=== PATIENT | female | born 2000 | race Caucasian/White ===

== ENCOUNTER 2021-07-16 17:25 | Emergency (ER) | payer OTHER ==
[2021-07-16] MEDS ORDERED: Sodium Chloride 0.9% 10 ML Syringe FLUSH PRN (17:28)
--- NOTE | 2021-07-16 18:24 | EDM.PDOC ---
ED HPI GENERAL MEDICAL PROBLEM - General Stated Complaint: FAST PLUSE Time Seen by Provider: 07/16/21 17:30 Source of Information: Reports: Patient History Limitations: Reports: No Limitations - History of Present Illness INITIAL COMMENTS - FREE TEXT/NARRATIVE: Patient presented to the ED because of palpitations which started at 2 pm. She has chest pain which has resolved upon her arrival in the ED. there is dizziness but no syncopal episode. She was started on strattera 2 weeks ago and she noticed that her anxiety and panic attack has been more frequent, weight loss, her appetite has been less. There is N/V but no abdominal pain. Headache Pain Score (Numeric/FACES): 3 - Related Data Allergies Allergy/AdvReac Type Severity Reaction Status Date / Time No Known Allergies Allergy Verified 07/16/21 17:45 Home Meds: Home Meds PARoxetine [Paxil] 10 mg PO DAILY 07/16/21 [History] atoMOXetine [Strattera] 40 mg PO DAILY 07/16/21 [History] traZODone 100 mg PO BEDTIME 07/16/21 [History] ED ROS GENERAL - Review of Systems Review Of Systems: See Below Constitutional: Reports: No Symptoms HEENT: Reports: No Symptoms Respiratory: Reports: No Symptoms Cardiovascular: Reports: Lightheadedness, Palpitations Endocrine: Reports: No Symptoms GI/Abdominal: Reports: Nausea, Vomiting : Reports: No Symptoms Musculoskeletal: Reports: No Symptoms Skin: Reports: No Symptoms Neurological: Reports: No Symptoms Psychiatric: Reports: Anxiety ED EXAM, GENERAL - Physical Exam Exam: See Below Exam Limited By: No Limitations General Appearance: Alert, No Apparent Distress Eye Exam: Bilateral Eye: PERRL Ears: Normal External Exam, Normal Canal Nose: Normal Inspection, Normal Mucosa, No Blood Throat/Mouth: Normal Inspection, Normal Lips, Normal Teeth, Normal Gums Head: Atraumatic, Normocephalic Neck: Normal Inspection, Supple, Non-Tender, Full Range of Motion Respiratory/Chest: No Respiratory Distress, Lungs Clear, Normal Breath Sounds, No Accessory Muscle Use, Chest Non-Tender Cardiovascular: Normal Peripheral Pulses, No Edema, No Gallop, No JVD, No Murmur, Tachycardia GI/Abdominal: Normal Bowel Sounds, Soft, Non-Tender, No Organomegaly Back Exam: Normal Inspection, Full Range of Motion Extremities: Normal Inspection, Normal Range of Motion, Non-Tender, No Pedal Edema, Normal Capillary Refill Neurological: Alert, Oriented, CN II-XII Intact, Normal Cognition, Normal Gait, Normal Reflexes, No Motor/Sensory Deficits Psychiatric: Anxious #1 Interpretation EKG Date: 07/16/21 Time: 17:58 Rhythm: NSR Rate (Beats/Min): 86 [place]: Normal P-Wave: Present QRS: Normal ST-T: Normal QT: Normal Comparison: NA - No Prior EKG EKG Interpretation Comments: NSR LAE Course - Vital Signs Text/Narrative:: Lab/EKG result was reviewed and discussed with patient and her parents Last Recorded V/S: Last Vital Signs Temp 36.7 C 07/16/21 17:30 Pulse 111 H 07/16/21 17:30 Resp 20 07/16/21 17:30 BP 136/107 H 07/16/21 17:30 Pulse Ox 100 07/16/21 17:30 - Orders/Labs/Meds Orders: Active Orders 24 hr Category Date Time Status Saline Lock Insert [OM.PC] Routine Oth 07/16/21 17:28 Ordered EKG 12 Lead [EK] Routine Ther 07/16/21 17:28 Ordered Labs: Laboratory Tests 07/16/21 07/16/21 07/16/21 Range/Units 17:45 17:45 17:45 WBC 8.9 (3.0-10.3) x10-3/uL RBC 5.37 H (3.60-5.20) x10(6)uL Hgb 15.2 (11.4-15.5) g/dL Hct 45.9 (34.2-48.2) % MCV 85.5 (76.7-100.5) fL MCH 28.2 (23.9-33.9) pg MCHC 33.0 (31.9-34.8) g/dL RDW 14.1 (12.3-16.5) % Plt Count 216 (151-488) x10(3)uL MPV 9.4 (7.1-12.4) fL Neut % (Auto) 70.0 (30.8-76.2) % Lymph % (Auto) 22.7 (18.4-52.1) % [place] % (Auto) 6.1 (4.4-15.7) % Eos % (Auto) 0.7 (0.6-8.1) % Baso % (Auto) 0.5 (0.2-1.5) % Neut # (Auto) 6.2 (1.5-6.3) x10-3/uL Lymph # (Auto) 2.0 (1.0-4.4) x10-3/uL [place] # (Auto) 0.5 (0.3-1.0) x10-3/uL Eos # (Auto) 0.1 (0.0-0.8) x10-3/uL Baso # (Auto) 0.0 (0.0-0.1) x10-3/uL Sodium 140 (135-145) mmol/L Potassium 4.2 (3.5-5.3) mmol/L Chloride 102 (100-110) mmol/L Carbon Dioxide 24 (21-32) mmol/L BUN 11 (7-18) mg/dL Creatinine 1.0 (0.55-1.02) mg/dL Est Cr Clr Drug Dosing 84.01 mL/min Estimated GFR (MDRD) > 60 (>60) BUN/Creatinine Ratio 11.0 (9-20) Glucose 82 (80-116) mg/dL Calcium 9.7 (8.6-10.2) mg/dL Magnesium 1.8 (1.8-2.5) mg/dL Total Bilirubin 0.7 (0.1-1.3) mg/dL AST 19 (5-25) IU/L ALT 29 (12-36) U/L Alkaline Phosphatase 88 (56-112) IU/L Troponin I < 4.0 L (4.0-60.3) pg/mL Total Protein 7.9 (6.0-8.0) g/dL Albumin 4.2 (3.5-5.2) g/dL Globulin 3.7 g/dL Albumin/Globulin Ratio 1.1 TSH, Ultra Sensitive 1.63 (0.36-3.74) IU/mL Meds: Medications Discontinued Medications Generic Name Dose Route Start Last Admin Trade Name Freq PRN Reason Stop Dose Admin Sodium Chloride 10 ml 07/16/21 17:28 Sodium Chloride 0.9% 10 Ml Syringe FLUSH ASDIRECTED PRN Keep Vein Open Departure - Departure Time of Disposition: 18:20 Disposition: Home, Self-Care 01 Condition: Good Clinical Impression: Palpitations, ADHD Instructions: Palpitations, [id number] Referrals: PCP,None [Primary Care Provider] - Forms: ED Department Discharge Additional Instructions: Please read discharge instructions on palpitations Talk to your doctor about the symptoms that you have been experiencing since taking strattera Follow up with your doctor - My Orders Last 24 Hours: My Active Orders 07/16/21 17:28 Saline Lock Insert [OM.PC] Routine EKG 12 Lead [EK] Routine - Assessment/Plan Last 24 Hours: My Active Orders 07/16/21 17:28 Saline Lock Insert [OM.PC] Routine EKG 12 Lead [EK] Routine
== END 2021-07-16 18:35 | disposition home or self-care (01) ==
LOC: FB.ED 17:25
DX: R00.2 Palpitations (principal); F90.9 Attention-deficit hyperactivity disorder, unspecified type
CPT/HCPCS: 36415; 80053; 83735; 84443; 84484; 85025; 93005; 99285-25